=== PATIENT | female | born 1965 | race Caucasian/White ===

== ENCOUNTER 2019-02-14 10:04 | Day surgery (SDC) | payer OTHER ==
[~2019-02-14 10:04] MED LIST: Lactated Ringers 1,000 ML IV SCH; Sodium Chloride 0.9% 10 ML Syringe FLUSH PRN; ceFAZolin 2 GM in Premix Bag 1 BAG IV ONE
[2019-02-14] MEDS ORDERED: fentaNYL 100 MCG/2 ML SDV IV ONE (10:05)
[2019-02-14] MEDS ORDERED: Lidocaine 1% 30 ML SDV ONE ×2 (10:05→11:18)
[2019-02-14] MEDS ORDERED: Ketorolac 30 MG/ML SDV IVPUSH ONE (10:05)
[2019-02-14] MEDS ORDERED: Ondansetron 4 MG/2 ML SDV IV ONE (10:05)
[2019-02-14] MEDS ORDERED: Propofol 200 MG/20 ML SDV IV ONE (10:05)
[2019-02-14] MEDS ORDERED: Bupivacaine 0.5% 30 ML SDV ONE ×2 (10:05→11:18)
[2019-02-14] MEDS ORDERED: Dexamethasone 4 MG/ML SDV IV ONE (10:05)
[2019-02-14] MEDS ORDERED: Midazolam 1 MG/ML 2 ML SDV IV ONE (10:05)
[2019-02-14] MEDS ORDERED: Lidocaine 1% 30 ML SDV INJECT ONE ×2 (12:19→13:55)
[2019-02-14] MEDS ORDERED: Bupivacaine 0.5% 30 ML SDV INJECT ONE ×2 (12:19→13:55)
[2019-02-14] MEDS ORDERED: Acetaminophen/oxyCODONE 325-5 MG Tab PO PRN (14:02)
--- NOTE | 2019-02-14 14:05 | PCM.OPNOTE ---
- General Post-Op/Procedure Note Date of Surgery/Procedure: 02/14/19 Operative Procedure(s): left foot first metatarsal bunionectomy/osteotomy with hardware, 2nd digit tendon balancing Pre Op Diagnosis: left foot painful bunion, 2nd digit medial deviation/hammertoe Post-Op Diagnosis: ajith Anesthesia Technique: Local, MAC Primary Surgeon: Jenna Spivey Anesthesia Provider: Ge Murray EBL in mLs: 5 Complications: none Condition: Good Free Text/Narrative:: Pt tolerated procedure well and was transported to recovery with vascular status intact to left foot. [place] 3.0 cannulated screws placed. Well padded compression dressing applied.
--- NOTE | 2019-02-15 16:19 | OR ---
DATE: 02/14/2019 PREOPERATIVE DIAGNOSES: 1. Left foot painful bunion. 2. Left foot hammertoe with medial deviation. POSTOPERATIVE DIAGNOSES: 1. Left foot painful bunion. 2. Left foot hammertoe with medial deviation. PROCEDURES PERFORMED: 1. Left foot 1st metatarsal osteotomy/bunionectomy. 2. Left 2nd digit tendon balancing. ANESTHESIA: Local MAC with preoperative local block of 10 mL 1:1 mixture of 1% lidocaine plain and 0.5% Marcaine plain. TOURNIQUET TIME: 86 minutes, pneumatic ankle tourniquet. ESTIMATED BLOOD LOSS: Minimal. SPECIMENS: None. COMPLICATIONS: None. INDICATIONS: Ifrah is a 53-year-old female who presents with painful bunion deformity of the left foot. This has been going on for several years now and gradually worsening. She has tried multiple different shoes and activity modifications with no relief. She also reports that several years ago she dropped a heavy object on the 2nd toe and now it is medially deviated over towards her great toe, worse when she stands. This does bother her. X-rays of the left foot reveal medially-deviated 1st metatarsal with IM of approximately 14 degrees, medially-deviated 2nd digit with hammertoe. The patient voiced good understanding of proposed procedure and possible complications and elects to have surgery at this time. DESCRIPTION OF PROCEDURE: The patient was taken to the operating room lying in supine position. After adequate anesthesia induction as described above, the left foot was prepped and draped in usual sterile fashion. A pneumatic ankle tourniquet was inflated to 225 mmHg. Attention was then directed to the dorsal aspect of the 1st metatarsophalangeal joint where an approximately 6 cm linear incision was made overlying the joint. Sharp and blunt dissection were performed down to the level of the joint capsule with care to gently retract all neurovascular structures. An inverted L capsulotomy was made to expose the distal 1st metatarsal. There was a hypertrophic medial eminence noted at this time that was removed with a sagittal saw. The articular surface appeared healthy except for the plantar aspect where she did have an articular defect and this was drilled with a 0.062 inch K-wire. A sagittal saw was used to make a chevron-type osteotomy in a fashion that would allow maintenance of the length upon lateral transposition of the capital fragment. The capital fragment was transposed laterally approximately 8 mm and impacted to bring the hallux in a near rectus alignment. The K-wires from the screw set were used as temporary fixation and 2 partially-threaded cannulated [place] 3.0 screws were then placed across the osteotomy. The osteotomy site was noted to be stable with all forces applied and good fluid range of motion of the 1st MTPJ. A lateral release was also performed at the fibular sesamoid. The toes noted to be in near rectus alignment. Fluoroscopy was used throughout the procedure to verify proper reduction of the deformity and proper fixation. The medial shelf was removed and a medial capsulorrhaphy was performed. The area was irrigated with copious amounts of sterile saline. Attention was directed to the 2nd digit where a curvilinear incision was made overlying the 2nd MTPJ. The dorsal capsule and medial capsule of the 2nd MTPJ were released and simulated weightbearing was performed. It was still noted that the hammertoe was dorsiflexed and medially deviated. An extensor tendon lengthening was then performed and capsule was tightened on the lateral aspect and it was again simulated weightbearing and was noted to be in a good rectus alignment at this time. The area was irrigated with copious amounts of sterile saline. Deep closure was completed with 3-0 Vicryl and skin closure was completed with 4-0 nylon. The area was dressed with Xeroform to the incision sites, fluffs, Webril, and Saad wrap. She was placed on weightbearing. She was transported to the recovery room with vital signs stable and vascular status intact as noted by immediate hyperemia to the left foot upon deflation of the ankle tourniquet. She was then discharged home when she met hospital discharge requirements. [facility] /[id number]
== END 2019-02-14 15:10 | disposition home or self-care (01) ==
LOC: DL.SDS 10:04
PROVIDERS: ATTEND Podiatrist
DX: M21.612 Bunion of left foot (principal); M20.42 Other hammer toe(s) (acquired), left foot; E03.9 Hypothyroidism, unspecified; E78.5 Hyperlipidemia, unspecified; Z79.899 Other long term (current) drug therapy
CPT/HCPCS: C1713; J0690; J1100; J1885; J2001; J2250; J2405; J2704; J3010; J3490; J7120